=== PATIENT | female | born 1995 | race Two or more races ===

== ENCOUNTER → 2020-09-28 | Outpatient (CLI) | payer SELFPAY | LOC: M LABSMTC 09:42 | PROVIDERS: ATTEND Pediatrics | DX: Z20.822 Contact with and (suspected) exposure to COVID-19 (principal) ==

== ENCOUNTER → 2020-10-08 | Outpatient (CLI) | payer SELFPAY | LOC: M LABSMTC 10:31 | PROVIDERS: ATTEND Pediatrics | DX: Z20.822 Contact with and (suspected) exposure to COVID-19 (principal) ==

== ENCOUNTER 2021-03-03 09:57 | Emergency (ER) | payer OTHER, SELFPAY ==
[~2021-03-03] VITALS: Ht 170.2 cm; Wt 72.3 kg
[2021-03-03 09:57] VITALS: BP 136/83
[2021-03-03] MEDS ORDERED: ASPI-1 PO (10:23)
[2021-03-03] MEDS ORDERED: NEXP1IMP SC (10:23)
== END 2021-03-03 11:34 | disposition left against medical advice (07) ==
LOC: M ED 09:57
DX: Z53.29 Procedure and treatment not carried out because of patient's decision for other reasons (principal)